=== PATIENT | female | born 1980 ===

== ENCOUNTER 2017-03-31 09:51 | Emergency (ER) | payer MEDICAID ==
[2017-03-31 10:16] VITALS: TEMP 98.1; BMI 21.1
--- NOTE | 2017-03-31 11:39 | C.PDOC ---
History Of Present Illness 36 year old female presents to the ED with complaint of gassy abdominal pain which began 2 week ago. Patient also reports difficulty with bowel movement and an intermittent pinching sensation to her left lower quadrant. Patient also reports chills and rectal pain. She was evaluated by her PMD 2 weeks ago and given Rx for Protonix and Colace. Patient was evaluated in [facility] 1 week ago and is currently being treated for a yeast infection. Patient denies fever, chills, dysuria, frequency and hematuria at this time. She admits to have unprotected sexual intercourse. Time Seen by Provider: 03/31/17 11:11 Chief Complaint (Nursing): GI Problem History Per: Patient History/Exam Limitations: no limitations Onset/Duration Of Symptoms: Intermittent Episodes, Other (2 weeks ) Current Symptoms Are (Timing): Still Present Location Of Pain/Discomfort: LLQ Quality Of Discomfort: "Pain", Gas Associated Symptoms: denies: Fever, Urinary Symptoms Additional History Per: Patient Past Medical History Reviewed: Historical Data, Nursing Documentation, Vital Signs Vital Signs: Last Vital Signs Temp 98.1 F 03/31/17 10:15 Pulse 78 03/31/17 14:57 Resp 20 03/31/17 14:57 BP 112/70 03/31/17 14:57 Pulse Ox 100 03/31/17 15:36 - Medical History PMH: Back Problems, Gastritis Surgical History: Family History: States: Unknown Family Hx - Social History Hx Tobacco Use: No Hx Alcohol Use: No Hx Substance Use: No - Immunization History Hx Tetanus Toxoid Vaccination: No Hx Influenza Vaccination: No Hx Pneumococcal Vaccination: No Review Of Systems Constitutional: Positive for: Chills Gastrointestinal: Positive for: Abdominal Pain, Rectal Pain Genitourinary: Negative for: Dysuria, Frequency, Hematuria Physical Exam - Physical Exam Appears: Non-toxic, No Acute Distress Skin: Normal Color, Warm, Dry Oral Mucosa: Moist Neck: Supple Chest: Symmetrical, No Deformity, No Tenderness Cardiovascular: Rhythm Regular, No Murmur Respiratory: Normal Breath Sounds, No Rales, No Rhonchi, No Wheezing Gastrointestinal/Abdominal: Bowel Sounds (normal ), Soft, Tenderness (to left upper and lower quadrants ), No Distention, No Guarding, No Rebound Rectal: Normal Exam, Other (few external skin tags noted. no stool in vault ) Pelvic: Normal Bimanual Exam, Vaginal Discharge (white), No Cervical Motion Tenderness, No Adnexal Tenderness Extremity: Normal ROM, Capillary Refill (less than 2 seconds ) Neurological/Psych: Oriented x3, Normal Speech, Normal Cognition Gait: Steady ED Course And Treatment - Laboratory Results Result Diagrams: 03/31/17 12:03 03/31/17 12:03 O2 Sat by Pulse Oximetry: 100 (on RA) Pulse Ox Interpretation: Normal - CT Scan/US CT A/P Other Rad Studies (CT/US): Interpreted By Me, Read By Radiologist, Radiology Report Reviewed CT/US Interpretation: PROCEDURE: CT Abdomen and Pelvis with oral and IV contrast. HISTORY: llq pain. COMPARISON: CT abdomen and pelvis with contrast performed 02/04/16. TECHNIQUE: Contiguous axial images of the abdomen and pelvis. Oral and IV contrast was administered. Coronal and Sagittal reformats generated and reviewed. Contrast dose: 100 mL Visipaque. Radiation dose: Total exam DLP = 297.58 mGy-cm. This CT exam was performed using one or more of the following dose reduction techniques: Automated exposure control, adjustment of the mA and/or kV according to patient size, and/or use of iterative reconstruction technique. FINDINGS: LOWER THORAX: No visible consolidation, pleural effusion, or pneumothorax. LIVER: Numerous too small to characterize hepatic hypodensities ; statistically likely cysts or hemangiomas. GALLBLADDER AND BILE DUCTS: Unremarkable. PANCREAS: Unremarkable. SPLEEN: Unremarkable. ADRENALS: Unremarkable. KIDNEYS AND URETERS: The kidneys enhance symmetrically. No hydronephrosis or obstructing renal calculus. BLADDER: The urinary bladder appears unremarkable. REPRODUCTIVE: Uterus is present. 2.3 cm probable right ovarian cyst. APPENDIX : The appendix appears within normal limits of caliber. No secondary signs of acute appendicitis. BOWEL: The stomach is nondistended. The bowel loops appear within normal limits of caliber without evidence of intestinal obstruction. Mild to moderate constipation. PERITONEUM: Small pelvic free fluid, likely physiologic. No definite free air. LYMPH NODES: No bulky lymphadenopathy identified. VASCULATURE: No aortic aneurysm. BONES: No acute osseous abnormality is detected. OTHER FINDINGS: None. IMPRESSION: 2.3 cm probable right ovarian cyst. Small pelvic free fluid, likely physiologic. Mild to moderate constipation. Medical Decision Making Medical Decision Making: Progress: Bloodwork, UA, CT A/P ordered and reviewed. 320 pm pt appears well, reports diarrhea after po contrast. pt with constipation on ct, will d/c with lactulose and gastro f/u Disposition Counseled Patient/Family Regarding: Studies Performed, Diagnosis, Need For Followup, Rx Given - Disposition Referrals: Shaik Griggs MD [Staff Provider] - Stan Sun MD [Staff Provider] - Disposition: HOME/ ROUTINE Disposition Time: 15:23 Condition: STABLE Additional Instructions: Please eat hi fiber food, increase fruit and vegetable intake. Drink more water. Follow up with Dr Sun and Dr Torres in next week. Take Lactulose as directed. Prescriptions: Lactulose 10 gm PO DAILY #100 solution Instructions: Constipation (ED), High Fiber Diet (ED) Forms: General Discharge Instructions, [facility] (Serbian), Work Excuse - Clinical Impression Clinical Impression: Constipation - PA / CONCRETE STONE FABRICATOR / Resident Statement MD/DO has reviewed & agrees with the documentation as recorded. - Scribe Statement The provider has reviewed the documentation as recorded by the Scribe (Kalpana Mitchell) All medical record entries made by the Scribe were at my direction and personally dictated by me. I have reviewed the chart and agree that the record accurately reflects my personal performance of the history, physical exam, medical decision making, and the department course for this patient. I have also personally directed, reviewed, and agree with the discharge instructions and disposition.
[2017-03-31] MEDS ORDERED: Iohexol 240 (50 ml) PO STA (11:41)
[2017-03-31 12:09] LABS: BASO # 0.1 K/uL (0.0-0.2); BASO % 0.8 % (0.0-2.0); EOS # 0.2 K/uL (0.0-0.7); EOS % 3.3 % (0.0-4.0); HEMATOCRIT 38.2 % (34.0-47.0); LYMPH # 1.6 K/uL (1.0-4.3); LYMPH % 22.7 % (20.0-40.0); MEAN CELL VOLUME 90.3 fL (81.0-99.0); MEAN CORPUSCULAR HEMOGLOBIN 30.8 pg (27.0-31.0); MEAN CORPUSCULAR HGB CONC 34.2 g/dL (33.0-37.0); MEAN PLATELET VOLUME 8.4 fL (7.2-11.7); MONO # 0.7 K/uL (0.0-0.8); MONO % 10.1 % (0.0-10.0); RED CELL DISTRIBUTION WIDTH 13.4 % (11.5-14.5)
[2017-03-31] MEDS ORDERED: Iohexol 240 (50 ml) ONE (12:10)
[2017-03-31 12:21] LABS: ALB/GLOB RATIO 1.6 (1.0-2.1); ALKALINE PHOSPHATASE 41 U/L (38-126); ALT/SGPT 17 U/L (9-52); AST/SGOT 21 U/L (14-36); BILIRUBIN,TOTAL 0.8 mg/dL (0.2-1.3); BLOOD UREA NITROGEN 12 mg/dL (7-17); CALCIUM 8.5 mg/dl (8.6-10.4); CARBON DIOXIDE 25 mmol/L (22-30); CHLORIDE 101 mmol/L (98-107); GFR AFRICAN-AMERICAN > 60; GLUCOSE,RANDOM 86 mg/dL (65-105); POTASSIUM 4.6 mmol/L (3.6-5.2); SODIUM 131 mmol/L (132-148); TOTAL PROTEIN 6.6 g/dL (6.3-8.3)
[2017-03-31 12:33] LABS: RBC URINE 3 /hpf (0-3); URINE BILIRUBIN NEGATIVE (NEGATIVE); URINE BLOOD NEGATIVE (NEGATIVE); URINE COLOR Yellow (YELLOW); URINE GLUCOSE (UA) NORMAL (Normal); URINE KETONE NEGATIVE (NEGATIVE); URINE LEUKOCYTE ESTERASE NEG Leu/uL (Negative); URINE PROTEIN NEGATIVE (NEGATIVE); URINE UROBILINOGEN NORMAL mg/dL (0.2-1.0); WBC URINE < 1 /hpf (0-5)
[2017-03-31] MEDS ORDERED: Iodixanol 320 MG/ML 100 ML BOTTLE IV ONE (13:51)
--- NOTE | 2017-03-31 14:33 | CT ---
PROCEDURE: CT Abdomen and Pelvis with oral and IV contrast. HISTORY: llq pain COMPARISON: CT abdomen and pelvis with contrast performed 02/04/16 TECHNIQUE: Contiguous axial images of the abdomen and pelvis. Oral and IV contrast was administered. Coronal and Sagittal reformats generated and reviewed. Contrast dose: 100 mL Visipaque Radiation dose: Total exam DLP = 297.58 mGy-cm. This CT exam was performed using one or more of the following dose reduction techniques: Automated exposure control, adjustment of the mA and/or kV according to patient size, and/or use of iterative reconstruction technique. FINDINGS: LOWER THORAX: No visible consolidation, pleural effusion, or pneumothorax. LIVER: Numerous too small to characterize hepatic hypodensities ; statistically likely cysts or hemangiomas. GALLBLADDER AND BILE DUCTS: Unremarkable. PANCREAS: Unremarkable. SPLEEN: Unremarkable. ADRENALS: Unremarkable. KIDNEYS AND URETERS: The kidneys enhance symmetrically. No hydronephrosis or obstructing renal calculus. BLADDER: The urinary bladder appears unremarkable. REPRODUCTIVE: Uterus is present. 2.3 cm probable right ovarian cyst. APPENDIX: The appendix appears within normal limits of caliber. No secondary signs of acute appendicitis. BOWEL: The stomach is nondistended. The bowel loops appear within normal limits of caliber without evidence of intestinal obstruction. Mild to moderate constipation. PERITONEUM: Small pelvic free fluid, likely physiologic. No definite free air. LYMPH NODES: No bulky lymphadenopathy identified. VASCULATURE: No aortic aneurysm. BONES: No acute osseous abnormality is detected. OTHER FINDINGS: None. IMPRESSION: 2.3 cm probable right ovarian cyst. Small pelvic free fluid, likely physiologic. Mild to moderate constipation.
[2017-03-31 14:58] VITALS: BP 112/70; PULSE 78; RESP 20
[2017-03-31 15:20] VITALS: O2SAT 100
== END 2017-03-31 15:35 | disposition home or self-care (01) ==
LOC: C.ER 09:51
DX: K59.00 Constipation, unspecified (principal)
CPT/HCPCS: 74177; 80053; 81001; 83690; 85025; 99284; G0328; Q9966; Q9967

== ENCOUNTER 2017-05-17 10:06 | Emergency (ER) | payer MEDICAID ==
[2017-05-17 10:31] VITALS: BMI 19.8
[2017-05-17 10:36] VITALS: RESP 20
--- NOTE | 2017-05-17 11:57 | C.PDOC ---
History Of Present Illness 36yo female, presents to ED with complaints of months of intermittent frontal headaches, associated with occasional dizziness. She also states her hands feel numb at times when she wakes from sleep, not at present. Patient demanding CT Scan now to rule out brain tumor. States she visited her PMD who gives her Tylenol and Motrin for her headache, but no further evaluation done. Patient also reports she is "under a lot of stress." She denies any nausea, vomiting, blurry vision. also c/o urinary frequency, no dysuria or abdominal pain. pt asking for food. Time Seen by Provider: 05/17/17 11:19 Chief Complaint (Nursing): Dizziness/Lightheaded History Per: Patient History/Exam Limitations: no limitations Onset/Duration Of Symptoms: Intermittent Episodes, Persistent Current Symptoms Are (Timing): Still Present Past Medical History Reviewed: Historical Data, Nursing Documentation, Vital Signs Vital Signs: Last Vital Signs Temp 97.2 F L 05/17/17 13:41 Pulse 62 05/17/17 13:41 Resp 20 05/17/17 13:41 BP 108/74 05/17/17 13:41 Pulse Ox 96 05/17/17 19:07 - Medical History PMH: Back Problems, Gastritis Surgical History: Family History: States: Unknown Family Hx - Social History Hx Tobacco Use: No Hx Alcohol Use: No Hx Substance Use: No - Immunization History Hx Tetanus Toxoid Vaccination: No Hx Influenza Vaccination: No Hx Pneumococcal Vaccination: No Review Of Systems Constitutional: Negative for: Fever, Chills Eyes: Negative for: Vision Change Gastrointestinal: Negative for: Nausea, Vomiting Neurological: Positive for: Headache Physical Exam - Physical Exam Appears: Non-toxic, No Acute Distress Skin: Warm, Dry Head: Atraumatic, Normacephalic Neurological/Psych: Oriented x3, Normal Speech, Normal Cognition ED Course And Treatment O2 Sat by Pulse Oximetry: 96 (RA) Pulse Ox Interpretation: Normal Medical Decision Making Medical Decision Making: Exam not performed by provider as patient is yelling and screaming. During discussion, patient made aware that if she has concern for a tumor, CT is not an optimal study and will not rule out cancer and additional radiation not recommended. Time: 1240 pm Patient agreeable with plan for follow up outpatient with neurology. Patient now demanding a urine culture because she has some dysuria and lower back pain. Urine cultures sent. 132 pm pt requesting food after taking so many pills for her pain. walking around ed in no distress. discussed with patient that she needs to make a headache diary to bring with her when she sees the neurologist, pt understands. Disposition Counseled Patient/Family Regarding: Studies Performed, Diagnosis, Need For Followup - Disposition Referrals: Ivory Holman MD [Staff Provider] - Disposition: HOME/ ROUTINE Disposition Time: 13:35 Condition: GOOD Additional Instructions: Please keep daily headache diary, describe when you have pain, what helps/makes it work and bring when you follow up with the neurologist. Continue tylenol or motrin for pain. Instructions: Tension Headache (ED) Forms: General Discharge Instructions, [facility] (Danish), Work Excuse - Clinical Impression Clinical Impression: Headache - PA / BRASS POURER / Resident Statement MD/DO has reviewed & agrees with the documentation as recorded. - Scribe Statement The provider has reviewed the documentation as recorded by the Scribe (Melida Slater) Provider Scribe Attestation: All medical record entries made by the Scribe were at my direction and personally dictated by me. I have reviewed the chart and agree that the record accurately reflects my personal performance of the history, physical exam, medical decision making, and the department course for this patient. I have also personally directed, reviewed, and agree with the discharge instructions and disposition.
--- NOTE | 2017-05-17 11:57 | C.PDOC ---
Time Seen by Provider: 05/17/17 11:19 Chief Complaint (Nursing): Dizziness/Lightheaded Past Medical History Vital Signs: Last Vital Signs Temp 98 F 05/17/17 10:33 Pulse 95 H 05/17/17 10:33 Resp 20 05/17/17 10:33 BP 110/78 05/17/17 10:33 Pulse Ox 96 05/17/17 10:33 - Medical History PMH: Back Problems, Gastritis Surgical History: Family History: States: Unknown Family Hx - Social History Hx Tobacco Use: No Hx Alcohol Use: No Hx Substance Use: No - Immunization History Hx Tetanus Toxoid Vaccination: No Hx Influenza Vaccination: No Hx Pneumococcal Vaccination: No ED Course And Treatment O2 Sat by Pulse Oximetry: 96 Disposition - Disposition
[2017-05-17 13:11] LABS: SQUAMOUS EPITHIAL 5 /hpf (0-5); URINE BILIRUBIN NEGATIVE (NEGATIVE); URINE BLOOD NEGATIVE (NEGATIVE); URINE CLARITY Hazy (Clear); URINE COLOR Yellow (YELLOW); URINE GLUCOSE (UA) NORMAL (Normal); URINE LEUKOCYTE ESTERASE NEG Leu/uL (Negative); URINE NITRATE NEGATIVE (NEGATIVE); URINE PROTEIN NEGATIVE (NEGATIVE); URINE UROBILINOGEN NORMAL mg/dL (0.2-1.0)
[2017-05-17 13:44] VITALS: BP 108/74; PULSE 62; TEMP 97.2
[2017-05-17 19:07] VITALS: O2SAT 96
== END 2017-05-17 14:16 | disposition home or self-care (01) ==
LOC: C.ER 10:06
DX: R51 Headache (principal)

== ENCOUNTER 2018-03-01 04:02 | Emergency (ER) | payer MEDICAID ==
[2018-03-01 04:02] VITALS: BMI 19.8
[2018-03-01 04:16] VITALS: BP 128/69; PULSE 89; RESP 16; TEMP 98.3; O2SAT 100
--- NOTE | 2018-03-01 04:34 | C.PDOC ---
Time Seen by Provider: 03/01/18 04:33 Chief Complaint (Nursing): Abnormal Skin Integrity Past Medical History Reviewed: Historical Data, Nursing Documentation, Vital Signs Vital Signs: Last Vital Signs Temp 98.3 F 03/01/18 04:12 Pulse 89 03/01/18 04:12 Resp 16 03/01/18 04:12 BP 128/69 03/01/18 04:12 Pulse Ox 100 03/01/18 04:12 - Medical History PMH: Back Problems, Gastritis Surgical History: Family History: States: No Known Family Hx - Social History Hx Tobacco Use: No Hx Alcohol Use: No Hx Substance Use: No - Immunization History Hx Tetanus Toxoid Vaccination: No Hx Influenza Vaccination: No Hx Pneumococcal Vaccination: No ED Course And Treatment O2 Sat by Pulse Oximetry: 100 Disposition Counseled Patient/Family Regarding: Studies Performed, Diagnosis, Need For Followup - Disposition Referrals: Shaik Griggs MD [Staff Provider] - Disposition: HOME/ ROUTINE Disposition Time: 04:33 Condition: FAIR Instructions: Wound Care (DC) Forms: [facility] (Zimbabwean) - Clinical Impression Clinical Impression: Skin lesion
[2018-03-01] MEDS ORDERED: Bacitracin Ointment 30 GM TUBE TOP ONE (05:01)
[2018-03-01] MEDS ORDERED: Bacitracin 500 Units/gm Oint Foilpak UD ONE (05:06)
== END 2018-03-01 05:10 | disposition home or self-care (01) ==
LOC: C.ER 04:02
DX: L98.9 Disorder of the skin and subcutaneous tissue, unspecified (principal)

== ENCOUNTER 2018-03-15 07:51 | Emergency (ER) | payer MEDICAID ==
[2018-03-15] MEDS ORDERED: Lactated Ringer's 1,000 ML IV ONE (09:56)
[2018-03-15 10:41] LABS: BASO % 0.1 % (0.0-2.0); EOS # 0.3 K/uL (0.0-0.7); EOS % 3.5 % (0.0-4.0); LYMPH # 1.5 K/uL (1.0-4.3); LYMPH % 19.4 % (20.0-40.0); MEAN CORPUSCULAR HEMOGLOBIN 31.4 pg (27.0-31.0); MEAN PLATELET VOLUME 8.4 fL (7.2-11.7); MONO # 0.7 K/uL (0.0-0.8); MONO % 9.6 % (0.0-10.0); NEUT # 5.2 K/uL (1.8-7.0); NEUT % 67.4 % (50.0-75.0); RBC 3.46 Mil/uL (3.80-5.20); RED CELL DISTRIBUTION WIDTH 12.9 % (11.5-14.5); WHITE BLOOD COUNT 7.7 K/uL (4.8-10.8)
[2018-03-15 10:43] LABS: SQUAMOUS EPITHIAL 1 /hpf (0-5); URINE BILIRUBIN NEGATIVE (NEGATIVE); URINE BLOOD NEGATIVE (NEGATIVE); URINE CLARITY Clear (Clear); URINE COLOR Yellow (YELLOW); URINE GLUCOSE (UA) NORMAL (Normal); URINE LEUKOCYTE ESTERASE NEG Leu/uL (Negative); URINE PROTEIN NEGATIVE (NEGATIVE)
[2018-03-15 10:51] LABS: HEMOGLOBIN 10.8 g/dL (11.0-16.0); MEAN CELL VOLUME 92.5 fL (81.0-99.0)
[2018-03-15 10:55] LABS: ALB/GLOB RATIO 1.1 (1.0-2.1); ALBUMIN 3.5 g/dL (3.5-5.0); ALT/SGPT 32 U/L (9-52); AST/SGOT 29 U/L (14-36); BLOOD UREA NITROGEN 8 mg/dL (7-17); CALCIUM 8.9 mg/dl (8.6-10.4); GFR NON-AFRICAN AMERICAN > 60
[2018-03-15 10:56] LABS: BARBITURATES, UR NEGATIVE (NEGATIVE); BENZODIAZEPINES, UR NEGATIVE (NEGATIVE); OPIATES, UR NEGATIVE (NEGATIVE); PHENCYCLIDINE, UR NEGATIVE (NEGATIVE)
--- NOTE | 2018-03-15 12:02 | OBHP ---
Datetime: 03/15/2018 08:53 IP Adm Impression: , intrauterine IP Admit Plan: Observation/Evaluation Admit Comment, IP Provider: Patient is a 37 y.o. female, /0/10/3 at 32 weeks and 1 day via LMP on 07/02/17 who came to [facility] for vaginal bleeding that began this morning. PATRICIA: 05/09/17. Patient state s that she had sexual intercourse at approximately 1:30AM and when she woke up today at 7:30AM to go to the bathroom she noticed there was blood in the toilet and a "golf-ball sized clot" fell out. She then continued to bleed a "Bounty napkin's-worth" of blood before coming to the hospital. Patient sta rebecca that she is currently feeling movement, the current bleeding is the only bleeding she exper ienced during this , she has felt no contractions and there was no discharge or leakage of f luids. Denies N/V, F/C, BAILEY, SOB, Dyspnea, Chest pain, Palpitations, Abdominal pain. OBHx Livin - male - 4lb 15 oz - 38 weeks - NVD 2004 - female - 6lb 15 oz - 38 weeks - NVD (includes a twin lost at 6 weeks) 2006 - male - 6lb - 38 weeks - , Breech positioning (includes a twin lost at 10 weeks) Abortions: 2007, 2009, 2010, 2011, 2012, 2013, 2014 - <6 weeks gestation- surgical Miscarriage: 2004 (6 weeks), 2005 (5 weeks), 2006 (10 weeks) ASSISTANT PRODUCE MANAGER Hx PAP - December 2017 - normal findings as per patient 10 y.o. X 30 day cycle X 6 days Sexually active during - last time 03/15/2018 @ 1:30pm STI: previous hx of Gonorrhea, Chlamydia - treated "years ago" Denies finding of abnormally placed placenta via U/S Hx of ovarian cysts, denies fibroids Social: Denies tobacco, drug, alcohol use during . 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 She is not however has been with the father for 18 y ears and he is present but not living with the patient. PMHX: Anxiety /Hx of panic attacks - does not take medication PSHX: Multiple D_C's (elective abortions), (2006, breech), Laparoscopy (2002, "uterus pr oblem" - normal findings), R knee surgery (1996) Family Hx: M - 65, alive, Alzheimer's, HTN, DM F - 72, alive, DM Great Grandmother - questionable cervical cancer Medications - vitamins Allergies - NKDA, possible food allergy to pork- Rash labs Rubella - immune 10/18/17 RPR - NR 10/18/17 HIV - NR 10/18/17 HepBsAg - Negative 10/18/17 Varicella - immune 10/18/17 G/C - negative 01/31/18 Assssment and Plan Patient is a 37 y.o. female, ,0,10,3 at 32 weeks and 1 day via LMP on 07/02/17 who came to [facility] for vaginal bleeding that began this morning. -Patient not actively in labor -NST Reactive -UA -CMP -CBC -UDS -OB ultrasound -Observe and continue monitoring Case discussed with Dr. Magallon. Nadiya Marroquin, PGY-1 Extremities - PN: Normal Abdomen - PN: Normal Back - PN: Not Done Lungs - PN: Normal Heart - PN: Normal Neurologic - PN: Normal HEENT - PN: Normal General - PN: Normal FHR - Baseline A Provider: 130 Membranes, Provider: Intact Contraction Comments Provider: none Comments, ACOG Physical Exam: Abdomen: Gravid, funal height at 24cm. Otherwise, non-tender to palpat ion, normal bowel sounds Pelvic: Cervix is closed. 0% effacement. No head palpated. No active bleeding. Gestation - Est Wks by US: 32.1 EGA AdmitDate IP: 32.1 Vital Signs Provider: Reviewed; Within Normal Limits (Annotations: Data stored by CPN on behalf of user) IP Chief Complaint: Vaginal bleeding NICHD Variability Prov Fetus A: Moderate 6-25bpm NICHD Accel Fetus A IP Provider: 10X10 FHR Category Provider Fetus A: Category II NICHD Decel Fetus A IP Provider: None; Variable Dilatation, Provider: 0 Effacement, Provider: 0 Station, Provider: floating Genitourinary Exam: Abnormal
--- NOTE | 2018-03-15 12:23 | US ---
Indication: vaginal bleeding, 32.1 weeks, previously breech Comparison: Pelvic ultrasound performed 05/13/16 Technique: Real-time ultrasound was performed through the pelvis. Findings: There is a single living fetus in cephalic presentation. Amniotic fluid volume is within normal limits. Anterior placenta. The placenta is not previa. There are no adnexal masses or cysts evident. Cervix length measures approximately 3.6 cm. The study was performed for the emergent evaluation of vaginal bleeding, and the whole anatomic survey of the fetus was not performed. This should be performed on an outpatient elective basis as clinically warranted. Limited visualized anatomy appears grossly unremarkable. Measurements and calculations: Fetus has a composite sonographic age of 32 weeks 0 days. This calculation is based on the biparietal diameter, head circumference, abdominal circumference, and femur length. Estimated heart rate 123.5 beats per min. Estimated weight 1866 g. Biophysical profile: movements 2/2 breathing 2/2 tone 2/2 Amniotic fluid 2/2 Total score impression: 11/16 Impression: Single living fetus with a composite sonographic age of 32 weeks 0 days. Estimated heart rate 123.5 beats per min. Biophysical profile of 8 out of 8.
[2018-03-15 20:05] VITALS: BP 107/64; PULSE 75; RESP 18; TEMP 97
== END 2018-03-15 14:15 | disposition home or self-care (01) ==
LOC: C.EROB 07:51
DX: O46.93 Antepartum hemorrhage, unspecified, third trimester (principal); Z3A.32 32 weeks gestation of pregnancy
CPT/HCPCS: 76815; 76818; 80053; 80324; 80345; 80346; 80349; 80353; 80358; 80361; 81001; 83992; 85025; 99283; J7120

== ENCOUNTER 2018-05-13 23:39 | Emergency (ER) | payer MEDICAID ==
[2018-05-13 23:40] VITALS: BMI 19.8
[2018-05-14 00:01] VITALS: BP 121/78; PULSE 88; TEMP 98.2; O2SAT 98
--- NOTE | 2018-05-14 00:36 | C.PDOC ---
History Of Present Illness 37 year old female presents to the ED c/o cough, nasal congestion, frontal headache and itchy throat for the past 2 days. Patient reports she took DayQuil with minimal relief to her symptoms. Patient denies fever, nausea, vomit, diarrhea, abdominal pain, recent travel, sick contacts. Time Seen by Provider: 05/14/18 00:09 Chief Complaint (Nursing): Cough, Cold, Congestion History Per: Patient History/Exam Limitations: no limitations Onset/Duration Of Symptoms: Days Current Symptoms Are (Timing): Still Present Location Of Pain: Throat, Sinus/es, Diffuse Myalgias, Headache Associated Symptoms: Sore Throat, Cough, Sinus Drainage, Nasal Congestion. denies: Fever Ear Symptoms: Bilateral: None Recent travel outside of the [place]: No Additional History Per: Patient Past Medical History Reviewed: Historical Data, Nursing Documentation, Vital Signs Vital Signs: Last Vital Signs Temp 98.2 F 05/13/18 23:54 Pulse 88 05/13/18 23:54 Resp 18 05/13/18 23:54 BP 121/78 05/13/18 23:54 Pulse Ox 98 05/13/18 23:54 - Medical History PMH: Back Problems, Gastritis Surgical History: Family History: States: Unknown Family Hx - Social History Hx Tobacco Use: No Hx Alcohol Use: No Hx Substance Use: No - Immunization History Hx Tetanus Toxoid Vaccination: No Hx Influenza Vaccination: No Hx Pneumococcal Vaccination: No Review Of Systems Constitutional: Negative for: Fever, Chills ENT: Positive for: Nose Discharge, Nose Congestion, Throat Pain Cardiovascular: Negative for: Chest Pain, Palpitations Respiratory: Positive for: Cough. Negative for: Shortness of Breath, Sputum, Wheezing Gastrointestinal: Negative for: Vomiting, Abdominal Pain, Diarrhea Skin: Negative for: Rash Neurological: Positive for: Headache. Negative for: Weakness, Numbness, Dizziness Physical Exam - Physical Exam Appears: Non-toxic, No Acute Distress Skin: Normal Color, Warm, Dry Head: Atraumatic, Normacephalic, Tenderness (frontal sinus tenderness) Eye(s): bilateral: Normal Inspection Ear(s): Bilateral: Normal Nose: Other (enlarged nasal turbinates) Oral Mucosa: Moist Throat: Normal, No Erythema, No Exudate Neck: Normal ROM, Supple Chest: Symmetrical Cardiovascular: Rhythm Regular Respiratory: Normal Breath Sounds, No Rales, No Rhonchi, No Wheezing Gastrointestinal/Abdominal: Soft, No Tenderness, No Guarding, No Rebound Extremity: Normal ROM, No Tenderness, No Swelling Neurological/Psych: Oriented x3, Normal Speech, Normal Cognition Gait: Steady ED Course And Treatment O2 Sat by Pulse Oximetry: 98 (ON RA) Pulse Ox Interpretation: Normal Progress Note: Patient was advised to follow up with PMD for further evaluation. Pt is currently breast feeding- advised pt best to hold off may give similac until better and antibiotics are completed. Pt agreed with plan Disposition Counseled Patient/Family Regarding: Diagnosis, Need For Followup, Rx Given - Disposition Disposition: HOME/ ROUTINE Disposition Time: 00:34 Condition: STABLE Additional Instructions: Increase PO fluids Bed rest Take medications as directed Return to ER if worse Prescriptions: Benzonatate [Tessalon Perles] 200 mg PO TID #14 sgl Fluticasone Propionate [Flonase] 1 actuation NS BID #1 inh Ibuprofen [Motrin] 600 mg PO Q6H #20 tab Instructions: Upper Respiratory Infection (ED) Forms: [facility] ([place]serratian) - Clinical Impression Clinical Impression: Upper respiratory infection - PA / SPLICING TECHNICIAN / Resident Statement MD/DO has reviewed & agrees with the documentation as recorded. - Scribe Statement The provider has reviewed the documentation as recorded by the Scribe Isaac Powell All medical record entries made by the Scribe were at my direction and personally dictated by me. I have reviewed the chart and agree that the record accurately reflects my personal performance of the history, physical exam, medical decision making, and the department course for this patient. I have also personally directed, reviewed, and agree with the discharge instructions and disposition.
[2018-05-14 01:04] VITALS: RESP 20
== END 2018-05-14 01:03 | disposition home or self-care (01) ==
LOC: C.ER 23:39
DX: J06.9 Acute upper respiratory infection, unspecified (principal)